=== PATIENT | female | born 1990 | race Caucasian/White ===

== ENCOUNTER 2016-10-23 18:30 | Outpatient (CLI) | payer MEDICAID, OTHER ==
[2016-10-23 21:03] LABS: ADD SCAN DIFF NO
[2016-10-23 21:07] LABS: BASOPHILS % 0.2 % (0.0-2.0); EOSINOPHILS # 0.1 10^3/ul (0.0-0.5); EOSINOPHILS % 0.8 % (0.0-7.0); HEMOGLOBIN 10.2 g/dl (12.0-16.0); LYMPHOCYTES # 2.1 10^3/ul (0.8-2.9); LYMPHOCYTES % 16.6 % (15.0-51.0); MEAN CORPUSCULAR HEMOGLOBIN 26.4 pg (29.0-33.0); MEAN CORPUSCULAR HGB CONC 32.9 g/dl (32.0-37.0); MEAN CORPUSCULAR VOLUME 80.3 fl (82.0-101.0); MEAN PLATELET VOLUME 9.7 fl (7.4-10.4); MONOCYTE # 0.8 10^3/ul (0.3-0.9); MONOCYTES % 6.4 % (0.0-11.0); NEUTROPHIL # 9.6 10^3/ul (1.6-7.5); NEUTROPHILS % 75.3 % (39.0-77.0); PLATELET COUNT 272 10^3/UL (140-415); RED BLOOD COUNT 3.86 10^6/ul (4.20-5.40); RED CELL DISTRIBUTION WIDTH 13.5 % (11.5-14.5); WHITE BLOOD COUNT 12.8 10^3/ul (4.8-10.8)
[2016-10-23 21:44] LABS: ALBUMIN 4.1 g/dl (3.3-4.9); ALBUMIN/GLOBULIN RATIO 1.32; CALCIUM 9.2 mg/dl (8.4-10.2); CREATININE 0.5 mg/dl (0.44-1.00); POTASSIUM 3.6 mmol/L (3.5-5.1); TOTAL PROTEIN 7.2 g/dl (6.1-8.1)
--- NOTE | 2016-10-23 22:13 | RADRPT ---
PROCEDURE: Obstetrical ultrasound, limited. CLINICAL INDICATION: Pelvic pain. TECHNIQUE: Multiple sonographic images of the pelvis were obtained using transabdominal technique . Images were obtained with hedrick scale and color Doppler. Endovaginal evaluation of the cervix was also performed. The images were reviewed on a PACS workstation. COMPARISON: No prior studies are available for comparison. FINDINGS: There is a single living intrauterine gestation with the fetus in a breech presentation. hear t tones of 152 beats per minute are identified. The placenta is anterior in location, grade 1. The cervix is closed measuring 5.0 cm. There is no evidence of placenta previa or abruption. Measurements were made in order to determine age. The results are as follows: BPD =6.10 cm HC =22.78 cm AC =19.80 cm FL =4.21 cm. Estimated gestational age of approximately 24 weeks and 3 days. The estimated date of delivery is 02/09/2017. The EFW = 676 +/- 101 grams. Estimated weight percentage equals 26.5%. IMPRESSION: Single viable intrauterine gestation of approximately 24 weeks and 3 days, with an ultrasound KEKE of 02/09/2017. .Ted Johnson MD, MD Date Time Electronically viewed and signed by .Ted Johnson MD, MD on 10/23/2016 22:13 .T/
[2016-10-23 22:28] LABS: ADD UMIC YES; UR BILIRUBIN (Dip) NEGATIVE (NEGATIVE); UR BLOOD (Dip) TRACE (NEGATIVE); UR CLARITY CLEAR (CLEAR); UR COLOR LT. YELLOW (YELLOW); UR GLUCOSE (Dip) NEGATIVE (NEGATIVE); UR KETONES (Dip) TRACE (NEGATIVE); UR LEUKOCYTE ESTERASE (Dip) NEGATIVE (NEGATIVE); UR NITRITE (Dip) NEGATIVE (NEGATIVE); UR TOTAL PROTEIN (Dip) NEGATIVE (NEGATIVE); UR UROBILINOGEN (Dip) 0.2 E.U./dL (0.1-1.0)
[2016-10-23 22:44] LABS: UR SQUAMOUS EPITHELIAL CELL MODERATE
[2016-10-23 22:45] LABS: UR BACTERIA FEW; URINE RBCS 0-2 /HPF (0)
== END 2016-10-23 23:08 | disposition home or self-care (01) ==
LOC: OBT 18:30 → L-D 18:31 → OBT 23:08
DX: O62.8 Other abnormalities of forces of labor (principal); O26.892 Other specified pregnancy related conditions, second trimester; R10.9 Unspecified abdominal pain; Z3A.24 24 weeks gestation of pregnancy
CPT/HCPCS: 76815; 76817; 80053; 81001; 85025; Z7500; G0463

== ENCOUNTER 2016-10-23 22:54 | Emergency (ER) | payer SELFPAY ==
[~2016-10-23] VITALS: Ht 172.7 cm; Wt 113.0 kg
[2016-10-23 22:57] VITALS: Ht 172.7 cm; Wt 113.0 kg
[2016-10-25] MEDS ORDERED: PRENAT PO (22:25)
== END 2016-10-24 03:29 | disposition left against medical advice (07) ==
LOC: FTE 22:54 → E/R 10-24 03:29
DX: Z53.21 Procedure and treatment not carried out due to patient leaving prior to being seen by health care provider (principal)

== ENCOUNTER 2016-10-25 22:00 | Outpatient (CLI) | payer OTHER ==
--- NOTE | 2016-10-24 02:54 | PN ---
Date/Time of Note Date/Time of Note DATE: 10/24/16 TIME: 02:47 OB Subjective Subjective Subjective 26Year-old G1 with SIUP at 24 1/7 wks presents with a chief complaint of RLQ pain and nausea. She states pain is radiating to right flank. She states good movement. She denies vomiting, shortness of breath, chest pain, and abdominal pain between contractions, headache, visual changes, vaginal bleeding or LOF. OB Objective Objective Objective General: Patient appears well, alert and oriented, NAD, appropriate mood and affect ABD: gravid, soft, non-tender. Back: No CVA tenderness (B/L) LE: No clubbing, cyanosis, edema, thigh or calf tenderness bilaterally FHT: 135 bpm , moderate variability with acceleration, no deceleration-category I Contractions: None OB Assessment/Plan Other plan: 26 Year-old G1 with SIUP at 24 1/7 wks presents with a chief complaint of RLQ pain and nausea - FHR: No sign of metabolic acidosis- Category I - Continuous EFM, toco - Contractions: None. - Reactive NST. BPP: 10/10 - OB US performed and d/w pt - Symptoms and sign of labor, preeclampsia, kick count discussed with patient, she voiced understanding. All of her questions answered. - Patient was transferred to ER for further management. I would like patient to have close follow-up with her primary physician or outpatient clinic in 1-2 days or return to the ER for worsening symptoms or any other urgent concerns. DAT KAYE Oct 24, 2016 02:54
[~2016-10-25] VITALS: Ht 172.7 cm; Wt 114.5 kg
[2016-10-25 22:23] VITALS: Ht 172.7 cm; Wt 114.5 kg
[2016-10-25 22:24] VITALS: BP 128/72; PULSE 96; RESP 18
[2016-10-25] MEDS ORDERED: PRENAT PO (22:25)
--- NOTE | 2016-10-25 23:00 | TRIAGE ---
OB Triage Datetime Report Generated by CPN: 10/25/2016 23:00 Datetime: 10/25/2016 22:05 Stage of : OB Triage Assessment Type: Triage Maternal Assessment Level of Consciousness: Fully Conscious DTR's/Clonus: DTRs 2+; No Clonus Headache: Denies Blurred Vision: No Respiratory Effort: Unlabored; Regular Rhythm; Equal Expansion Breath Sounds, Left: Clear and Equal Breath Sounds, Right: Clear and Equal Nausea/Vomiting: Denies RUQ Epigastric Pain: Denies Facial Edema: None Fall Risk Assessment History of Falling: (0) No Secondary Diagnosis: (0) No Ambulatory Aid: (0) Bedrest/Nurse Assist IV Therapy: (0) No Gait: (0) Normal/Bedrest/Immobile Mental Status: (0) Oriented to Own Ability Fall Score: 0 Fall Risk Score Definition: No Risk: No action required Pain Assessment Pain Scale: 2 Pain Presence: Constant Pain Type: Contraction; Pressure Pain Location: Abdomen; Back Pain Goal: 0 Pain Relief Measures: Comfort Measures Datetime: 10/25/2016 22:04 Stage of : OB Triage Labor Evaluation Monitor Mode: External Contraction Comments: APPLIED Monitor Mode: External US Comments: APPLIED Datetime: 10/25/2016 21:55 Time of Arrival: 10/25/2016 21:54 EGA: 24.6 Arrived By: Wheelchair Arrived From: Emergency Dept Chief Complaint: CONTRACTIONS AND PRESSURE SINCE SUNDAY THAT RADIATES TO HER LOWER BACK Movement: Present Rupture of Membranes: Denies Vaginal Bleeding: None Vaginal Discharge: Denies Abdominal Trauma: Not Applicable Patient Complaints: Contractions; Back Pain Initial Plan: EFM, CALL OB Datetime: 10/23/2016 22:00 Labor Evaluation Monitor Mode: External Duration (sec)2399: 0 Monitor Mode: External US Comments: off Datetime: 10/23/2016 21:00 Labor Evaluation Monitor Mode: External Duration (sec)2399: 0 Contraction Comments: Pt denies cramping pain Monitor Mode: External US Comments: off Datetime: 10/23/2016 20:21 Assessment Type: Triage Maternal Assessment Level of Consciousness: Fully Conscious DTR's/Clonus: DTRs 2+; No Clonus Headache: Denies Blurred Vision: No Respiratory Effort: Unlabored; Regular Rhythm; Equal Expansion Breath Sounds, Left: Clear and Equal Breath Sounds, Right: Clear and Equal Nausea/Vomiting: Denies RUQ Epigastric Pain: Denies Facial Edema: None Fall Risk Assessment History of Falling: (0) No Secondary Diagnosis: (0) No Ambulatory Aid: (0) Bedrest/Nurse Assist IV Therapy: (0) No Gait: (0) Normal/Bedrest/Immobile Mental Status: (0) Oriented to Own Ability Fall Score: 0 Fall Risk Score Definition: No Risk: No action required Datetime: 10/23/2016 20:18 Time of Arrival: 10/23/2016 19:22 EGA: 24.4 Arrived By: Ambulatory Arrived From: Home Chief Complaint: "I have pain on my lower abd area and some vaginal pressure." Movement: Present Rupture of Membranes: Unsure Vaginal Bleeding: None Vaginal Discharge: Denies Recent Sexual Intercouse: Denies Abdominal Trauma: Not Applicable Patient Complaints: Back Pain; Other Time Provider Notified: 10/23/2016 20:50 Provider Notified: DR KAYE (Annotations: Data stored by CPN on behalf of user) Initial Plan: PTL CHECK Datetime: 10/23/2016 20:15 Labor Evaluation Monitor Mode: External Heart Rate FHR Baseline Rate: 150 Monitor Mode: External US Variability: Moderate 6-25 bpm Accelerations: 15X15 Category: Category I Pain Assessment Pain Scale: 6 Pain Presence: Constant Pain Type: Ache Pain Goal: 0 Datetime: 10/23/2016 20:01 Stage of : OB Triage Maternal Assessment Level of Consciousness: Fully Conscious DTR's/Clonus: DTRs 2+; No Clonus Headache: Denies Blurred Vision: No Respiratory Effort: Unlabored; Regular Rhythm; Equal Expansion Breath Sounds, Left: Clear and Equal Breath Sounds, Right: Clear and Equal Nausea/Vomiting: Denies RUQ Epigastric Pain: Denies Lower Extremities Edema: Bilateral Lower Extremities Degree: 1+ Upper Extremities Edema: None Degree: None Facial Edema: None Temperature Route: Oral Fall Risk Assessment History of Falling: (0) No Secondary Diagnosis: (0) No Ambulatory Aid: (0) Bedrest/Nurse Assist IV Therapy: (0) No Gait: (0) Normal/Bedrest/Immobile Mental Status: (0) Oriented to Own Ability Fall Score: 0 Fall Risk Score Definition: No Risk: No action required Labor Evaluation Monitor Mode: External
[2016-10-25 23:37] LABS: ADD UMIC NO; URINE BILIRUBIN (Dip) NEGATIVE (NEGATIVE); URINE BLOOD (Dip) NEGATIVE (NEGATIVE); URINE COLOR LT. YELLOW (YELLOW); URINE GLUCOSE (Dip) NEGATIVE (NEGATIVE); URINE KETONES (Dip) NEGATIVE (NEGATIVE); URINE LEUKOCYTE ESTERASE (Dip) NEGATIVE (NEGATIVE); URINE NITRITE (Dip) NEGATIVE (NEGATIVE); URINE TOTAL PROTEIN (Dip) NEGATIVE (NEGATIVE); URINE UROBILINOGEN (Dip) 0.2 E.U./dL (0.1-1.0)
--- NOTE | 2016-10-26 00:11 | RADRPT ---
PROCEDURE: Obstetrical ultrasound greater than 14 weeks CLINICAL INDICATION: Uterine contractions TECHNIQUE: Real time sonographic imaging of the gravid uterus is performed transabdominally and mu ltiple static hedrick scale and Doppler images are submitted for review as are measurements. The image s are reviewed on the PACS. COMPARISON: 10/23/2016 FINDINGS: The cervical os is closed with a normal cervical length of 4.3 cm. There is a single living intrauterine gestation in cephalic presentation. The heart beat is estimated at 146 bpm. Anterior grade 1 placenta without placenta previa or abruption. RPTAT:HJJR IMPRESSION: 1. Single viable intrauterine gestation with the cervical length estimated at 4.3 cm, previously 5 c m on the study of 10/23/2016. 2. Anterior grade 1 placenta without placenta previa or abruption. Physician Cyndi Date Time Electronically viewed and signed by Physician Cyndi on 10/26/2016 00:11 JR/
--- NOTE | 2016-10-26 01:31 | TRIAGE ---
OB Triage Datetime Report Generated by CPN: 10/26/2016 01:31 Datetime: 10/26/2016 00:51 Stage of : OB Triage Datetime: 10/26/2016 00:19 Stage of : OB Triage Datetime: 10/25/2016 23:00 Stage of : OB Triage Datetime: 10/25/2016 22:50 Stage of : OB Triage Frequency: NONE Monitor Mode: External Duration (sec)2399: NONE Resting Tone [place]: Relaxed FHR Baseline Rate: 145 Monitor Mode: External US Variability: Minimal - Undetectable to <=5 bpm Accelerations: 10X10 Decelerations: None Category: Category II Comments: APPROPRIATE FOR GESTATIONAL AGE Datetime: 10/25/2016 22:43 Stage of : OB Triage Datetime: 10/25/2016 21:55 Contractions: Denies/Absent Recent Sexual Intercouse: Denies Time Provider Notified: 10/25/2016 22:43 Provider Notified: DR. HERNANDEZ Initial Plan: EFM, CALL OB, FFN, URINALYSIS, PO HYDRATION, CVL
--- NOTE | 2016-10-26 04:46 | PN ---
Triage Information Date/Time 26-year-old with IUP at 24 weeks and 6 days presented with complaint of uterine contraction since morning. She also feels pelvic pressure that radiated to them lower back. She was here 2-3 days ago with the same symptoms. Cervical length and prior presentation to triage was 5. Today's cervical length 4.3. She denies any fever chills or urinary symptoms. Patient reports she feels pressure in the vagina with urination and defecation. She denies any leaking of fluid or vaginal bleeding or decreased movement. Weeks of Gestation 24 weeks and 6 days : 2 Para: 0 Diabetes: none Hypertention: none Objective Vital Signs Date Time Temp Pulse Resp B/P Pulse Ox O2 Delivery O2 Flow Rate FiO2 10/25/16 22:24 98.9 96 18 128/72 Room Air Exam General appearance: Alert and oriented 4 patient appears to be in mild distress Abdomen: Soft, gravid, fundal height consistent with gestational age, no tenderness no rebound tenderness, no guarding, no CVA tenderness, no suprapubic tenderness NST: Appropriate for gestational age. No contraction seen on the monitor. FFN: Negative Urine analysis: Negative Results/Medications Results 24 hrs Laboratory Tests Test 10/25/16 23:00 Urine Color LT. YELLOW Urine Clarity CLEAR Urine pH 6.5 Urine Specific [place] 1.015 Urine Ketones NEGATIVE Urine Nitrite NEGATIVE Urine Bilirubin NEGATIVE Urine Urobilinogen 0.2 E.U./dL Urine Leukocyte Esterase NEGATIVE Urine Hemoglobin NEGATIVE Urine Glucose NEGATIVE Urine Total Protein NEGATIVE Fibronectin NEGATIVE Imaging Results PROCEDURE: Obstetrical ultrasound greater than 14 weeks CLINICAL INDICATION: Uterine contractions TECHNIQUE: Real time sonographic imaging of the gravid uterus is performed transabdominally and multiple static hedrick scale and Doppler images are submitted for review as are measurements. The images are reviewed on the PACS. COMPARISON: 10/23/2016 FINDINGS: The cervical os is closed with a normal cervical length of 4.3 cm. There is a single living intrauterine gestation in cephalic presentation. The heart beat is estimated at 146 bpm. Anterior grade 1 placenta without placenta previa or abruption. RPTAT:HJJR IMPRESSION: 1. Single viable intrauterine gestation with the cervical length estimated at 4.3 cm, previously 5 cm on the study of 10/23/2016. 2. Anterior grade 1 placenta without placenta previa or abruption. Assessment/Plan IUP at 24 weeks and 6 days Lower abdominal and flank pain, due to musculoskeletal. No evidence of labor . Advise about adequate hydration, rest, taking Tylenol as needed pain no evidence of PPROM Follow-up with her OB office in 1-3 days after discharge from the hospital recommended Return to triage as needed continuation of worsening of the symptoms, decreased movement, leaking of fluid any other concern Patient verbalized understanding. CARMEN HERNANDEZ MD Oct 26, 2016 04:46
== END 2016-10-26 00:51 | disposition home or self-care (01) ==
LOC: OBT 22:00 → L-D 22:01 → OBT 10-26 00:51
PROVIDERS: ATTEND Obstetrics & Gynecology Obstetrics
DX: O26.892 Other specified pregnancy related conditions, second trimester (principal); R10.31 Right lower quadrant pain; O21.2 Late vomiting of pregnancy; O62.9 Abnormality of forces of labor, unspecified; Z3A.24 24 weeks gestation of pregnancy
CPT/HCPCS: 76817; 81003; 82731; Z7500; G0463